=== PATIENT | female | born 1985 | race Caucasian/White ===

== ENCOUNTER → 2020-01-12 | Outpatient (CLI) | payer BC | LOC: COL.RAD 07:08 | DX: J34.1 Cyst and mucocele of nose and nasal sinus (principal) ==

== ENCOUNTER → 2023-02-02 | Outpatient (CLI) | payer BC | LOC: COL.RAD 13:54 | DX: R10.31 Right lower quadrant pain (principal); Z87.42 Personal history of other diseases of the female genital tract ==

== ENCOUNTER → 2023-07-19 | Outpatient (CLI) | payer BC | LOC: MC.RAD 13:55 | DX: Z12.31 Encounter for screening mammogram for malignant neoplasm of breast (principal) ==